=== PATIENT | male | born 1980 | race Caucasian/White ===

== ENCOUNTER 2023-10-05 16:22 | Emergency (ER) | payer MEDICAID ==
[~2023-10-05] VITALS: Ht 180.3 cm; Wt 94.0 kg
[2023-10-05 16:47] VITALS: O2SAT 97
[2023-10-05 17:18] LABS: CLARITY URINE CLEAR (CLEAR); COLOR URINE YELLOW (YELLOW); GLUCOSE URINE NEGATIVE (NEGATIVE); KETONES URINE NEGATIVE (NEGATIVE); LEUKOCYTE ESTERASE URINE 2+ (NEGATIVE); NITRITE URINE NEGATIVE (NEGATIVE); OCCULT BLOOD URINE NEGATIVE (NEGATIVE); PH URINE 5.5 (4.5-8.0); PROTEIN URINE NEGATIVE (NEGATIVE)
[2023-10-05 17:39] LABS: BACTERIA URINE 1+; RBC URINE 0-2 /hpf (0-2); SQUAMOUS EPITHELIAL CELL URINE 1+ /lpf (RARE/1+)
[2023-10-05] MEDS ORDERED: DOXY100T2 MT (18:52)
[2023-10-05 19:00] VITALS: BP 127/75; PULSE 86; RESP 17; TEMP 97.3
[2023-10-05] MEDS: DOXYCYCLINE HYCLATE 100MG CAPSULE PO ONE (19:00)
[2023-10-05] MEDS: CEFTRIAXONE SODIUM 500MG VIAL IM ONE (19:00)
[2023-10-08 13:07] LABS: CHLAMYDIA TRACHOMATIS NAA Negative (Negative); NEISSERIA GONORRHOEAE NAA Negative (Negative)
== END 2023-10-05 19:48 | disposition home or self-care (01) ==
LOC: ER 16:22
DX: R30.0 Dysuria (principal)
CPT/HCPCS: 87491; 87591; 81003; 96372; 99283; J0696; Z7610

== ENCOUNTER 2024-12-03 18:01 | Emergency (ER) | payer MEDICAID ==
[~2024-12-03] VITALS: Ht 172.7 cm; Wt 90.0 kg
[~2024-12-03 18:01] MED LIST: DOXY100T2 MT
[2024-12-03 18:25] VITALS: TEMP 37.1; O2SAT 100
[2024-12-03 19:29] LABS: CLARITY URINE CLEAR (CLEAR); COLOR URINE DARK YELLOW (YELLOW); GLUCOSE URINE NEGATIVE (NEGATIVE); KETONES URINE TRACE (NEGATIVE); LEUKOCYTE ESTERASE URINE 1+ (NEGATIVE); NITRITE URINE NEGATIVE (NEGATIVE); OCCULT BLOOD URINE NEGATIVE (NEGATIVE); PH URINE 5.0 (4.5-8.0); PROTEIN URINE NEGATIVE (NEGATIVE); SPECIFIC GRAVITY URINE 1.034 (1.005-1.030); UROBILINOGEN URINE 1.0 E.U./dL (0.2-1.0)
[2024-12-03 19:42] LABS: BACTERIA URINE TRACE; CALCIUM OXALATE CRYSTALS URINE 1+ /lpf; RBC URINE NONE SEEN /hpf (0-2); SQUAMOUS EPITHELIAL CELL URINE FEW /lpf (RARE/1+)
[2024-12-03] MEDS: DOXYCYCLINE HYCLATE 100MG CAPSULE PO NR (22:51)
[2024-12-03] MEDS: CEFTRIAXONE SODIUM 500MG VIAL IM NR (22:51)
[2024-12-03] MEDS: LIDOCAINE HCL 1% 20ML VIAL INFIL NR (22:55)
[2024-12-03] MEDS ORDERED: DOXY150T9 MT (23:16)
[2024-12-04 00:27] VITALS: BP 148/99; PULSE 53; RESP 19; O2SAT 97
[2024-12-08 04:07] LABS: CHLAMYDIA TRACHOMATIS NAA Negative (Negative); NEISSERIA GONORRHOEAE NAA Negative (Negative)
== END 2024-12-04 00:29 | disposition home or self-care (01) ==
LOC: ER 18:01
DX: N39.0 Urinary tract infection, site not specified (principal); Z88.0 Allergy status to penicillin; Z91.040 Latex allergy status
CPT/HCPCS: 99283; 87491; 87591; 81003; 96372; J0696; J2003